=== PATIENT | male | born 1960 ===

== ENCOUNTER 2022-05-09 06:32 | Day surgery (SDC) | payer OTHER ==
[~2022-05-09] VITALS: Ht 165.1 cm; Wt 84.1 kg
--- NOTE | 2022-05-09 09:13 | NUR ---
05/09/22 0913 Carla Hartley 10ML NACL USED FOR POLYP REMOVAL.
== END 2022-05-09 09:35 | disposition home or self-care (01) ==
LOC: ORSCSDS 06:32
PROVIDERS: Student in an Organized Health Care Education/Training Program
PROC: 0DBK8ZX Excision of Ascending Colon, Via Natural or Artificial Opening Endoscopic, Diagnostic (ICD-10-PCS; principal; 2022-05-09 08:00)
PROC: 0DBH8ZX Excision of Cecum, Via Natural or Artificial Opening Endoscopic, Diagnostic (ICD-10-PCS; principal; 2022-05-09 08:00)
PROC: 0DBN8ZX Excision of Sigmoid Colon, Via Natural or Artificial Opening Endoscopic, Diagnostic (ICD-10-PCS; principal; 2022-05-09 08:00)
PROC: 0DBL8ZX Excision of Transverse Colon, Via Natural or Artificial Opening Endoscopic, Diagnostic (ICD-10-PCS; principal; 2022-05-09 08:00)
PROC: 0DBM8ZX Excision of Descending Colon, Via Natural or Artificial Opening Endoscopic, Diagnostic (ICD-10-PCS; principal; 2022-05-09 08:00)
DX: Z12.11 Encounter for screening for malignant neoplasm of colon (principal); D12.0 Benign neoplasm of cecum; D12.3 Benign neoplasm of transverse colon; D12.2 Benign neoplasm of ascending colon; D12.4 Benign neoplasm of descending colon; K63.5 Polyp of colon
CPT/HCPCS: 88305; J2704; J7120